=== PATIENT | male | born 1940 | race African-American/Black ===

== ENCOUNTER 2016-10-23 08:59 | Emergency (ER) | payer MEDICARE, OTHER ==
[2016-10-23] MEDS ORDERED: METH150T PO (10:01)
[2016-10-23] MEDS ORDERED: DIAZ5TAB PO (10:01)
--- NOTE | 2016-10-23 10:01 | PHYS DOC ---
Past History Past Medical History: High Cholesterol, Hypertension Past Surgical History: Knee Replacement Smoking: Non-smoker Alcohol Use: None Drug Use: None Adult General Chief Complaint Chief Complaint: BACK PAIN OR INJURY HPI HPI He is a pleasant 76-year-old male with a chronic history of lower back pain and left hip pain groin pain has been plaguing him for months. He started the care of the [facility] and his family's become relatively frustrated with the lack of progress in determining a diagnosis for cause of his pain. Patient says the pain is continuous describes as throbbing with aching from the hip to the gluteus damian to the lateral aspect of the leg and left calf. He denies any direct trauma, denies any numbness and tingling of the lower legs, denies any bowel or bladder incontinence, denies any night sweats, fevers, weight loss, pain is worse with range of motion and direct pressure over the lateral aspect of the hip into the groin. Patient's had a CAT scan abdomen and pelvis done within the last week demonstrating no intra-abdominal catastrophe causing his symptoms. There is been some calcification of the vascular structures within the abdominal and the aortic tree structure that nothing of the occlusive type. Patient has had a MRI of the hip as well done asserting no bursitis no soft tissue inflammation normal musculature normal range of motion with only gentle joint change within the acetabulum. Studies were produced by the family reports at bedside which were reviewed by me. Patient does not understand those results and so we reviewed them on his arrival. There is no new symptoms today other than the fact that he goes to the [facility] ER once a week for last 6 or 8 weeks to get pain medications and shots to relieve his symptoms. He has family getting frustrated with this situation because there is no definitive treatment plan. They're hoping we can help him today. Patient denies any fevers, chills, urinary or bladder incontinence, night sweats or direct trauma. Patient has had a 19 pound weight loss in the last 6 months. Review of Systems Review of Systems Constitutional: Denies fever or chills [] Eyes: Denies change in visual acuity, redness, or eye pain [] HENT: Denies nasal congestion or sore throat [] Respiratory: Denies cough or shortness of breath [] Cardiovascular: No additional information not addressed in HPI [] GI: Denies abdominal pain, nausea, vomiting, bloody stools or diarrhea [] : Denies dysuria or hematuria [] Musculoskeletal: Complain of his chronic back pain and joint. Integument: Denies rash or skin lesions [] Neurologic: Denies headache, focal weakness or sensory changes [] Endocrine: Denies polyuria or polydipsia [] Physical Exam Physical Exam Auto signs evaluated patient and be hypertensive. Cardiovascular:Heart rate regular rhythm, no murmur [] Lungs & Thorax: Bilateral breath sounds clear to auscultation [] Skin: Warm, dry, no erythema, no rash. [] Back: There is palpation along the lumbar spine on the left along with tenderness along the lateral hip with no soft tissue soft tissue swelling. Patient has decreased range of motion secondary to pain. There is nothing new about the symptoms S. [] Extremities: No tenderness along the iliotibial band and the left and the sartorius muscle. He's also tenderness along the vastus lateralis as well. Neurologic: Alert and oriented X 3, normal motor function, normal sensory function, no focal deficits noted. [] Psychologic: Affect normal, judgement normal, mood normal. [] EKG EKG [] Radiology/Procedures Radiology/Procedures [] Course & Med Decision Making Course & Med Decision Making Pertinent Labs and Imaging studies reviewed. (See chart for details) he presents with chronic lower back pain with no new symptoms today family's expressed frustration with lack of progress in determining a etiology for his symptoms. At this point given his negative CAT scan and negative MRI reviewed by me today provided by the family and possibly placed in the medical record per the parents family's permission. Doubt cauda equina, doubt ruptured AAA, doubt renal disease like revealed stone, or fracture or tumor because of the and negative ct, doubt epidural abscess or hematoma all of the has had epidural injections some time ago. She will be treated with anti-inflammatories, muscle relaxants and follow-up with his primary care doctor to refer him back to neurosurgery and complete his scheduled MRI next week. [] Dragon Disclaimer Dragon Disclaimer This chart was dictated in whole or in part using Voice Recognition software in a busy, high-work load, and often noisy Emergency Department environment. It may contain unintended and wholly unrecognized errors or omissions. Departure Departure: Impression: Primary Impression: Chronic lower back pain Additional Impression: Hip pain, chronic Disposition: HOME, SELF-CARE Condition: STABLE Referrals: ANGEL ESTRADA MD (PCP) Patient Instructions: Chronic Back Pain, Chronic Pain Management, Hip Pain Additional Instructions: Please return for any new or increasing symptoms, like night sweats or new neurologic deficits in the lower extremity especially the left with bowel or bladder incontinence. I would advise a follow-up your primary care doctor to discuss your frustration and you need for changing your medications in order to help cope with her chronic constipation and her chronic pain needs. Scripts Diazepam (VALIUM) 5 Mg Tablet 5 MG PO TID for 5 Days, #15 TAB Please use one tablet every 8 hours as needed for muscle spasms. Do not drink alcohol or use other narcotics with this medication. Prov: HARVEY COLE MD 10/23/16 Methylnaltrexone [place] (Relistor) 150 Mg Tablet 450 MG PO DAILY for 10 Days, #30 TAB Prov: HARVEY COLE MD 10/23/16 Problem Qualifiers HARVEY COLE MD Oct 23, 2016 10:01
[2016-10-23] MEDS ORDERED: DEXAMETHASONE SOD PHOS 10 MG/ML VIAL IV ONE (10:20)
[2016-10-23] MEDS ORDERED: KETOROLAC 60 MG/2 ML VIAL. IM ONE (10:20)
[2016-10-23 10:55] VITALS: BP 122/82
== END 2016-10-23 10:55 | disposition home or self-care (01) ==
LOC: ER 08:59
DX: G89.29 Other chronic pain (principal); M54.5 Low back pain; M25.552 Pain in left hip; E78.00 Pure hypercholesterolemia, unspecified; I10 Essential (primary) hypertension
CPT/HCPCS: 96372; 96374; 99284; J1100; J1885

== ENCOUNTER 2016-10-26 14:04 | Inpatient (IN) | payer MEDICARE, OTHER ==
[~2016-10-26] VITALS: Ht 170.2 cm; Wt 98.9 kg
[~2016-10-26 14:04] MED LIST: DIAZ5TAB PO; METH150T PO
[2016-10-26 14:11] VITALS: BP 148/82
[2016-10-26 15:57] LABS: BASO % 1 % (0-3); EOS # 0.1 x10^3/uL (0.0-0.7); EOS % 2 % (0-3); HEMATOCRIT 38.8 % (39.0-53.0); HEMOGLOBIN 13.1 g/dL (13.0-17.5); LYMPH # 1.7 x10^3/uL (1.0-4.8); LYMPH % 36 % (24-48); MEAN CORPUSCULAR HEMOGLOBIN 31 pg (25-35); MEAN CORPUSCULAR HGB CONC 34 g/dL (31-37); MEAN CORPUSCULAR VOLUME 91 fL (79-100); MONO # 0.5 x10^3/uL (0.0-1.1); MONO % 10 % (0-9); NEUT # 2.4 x10^3uL (1.8-7.7); NEUT % 52 % (31-73); PLATELET COUNT 152 x10^3/uL (140-400); RED BLOOD COUNT 4.25 x10^6/uL (4.30-5.70); RED CELL DISTRIBUTION WIDTH 14.6 % (11.5-14.5); WHITE BLOOD COUNT 4.7 x10^3/uL (4.0-11.0)
[2016-10-26] MEDS ORDERED: KETOROLAC 30 MG/ML VIAL. IV PRN (16:00)
[2016-10-26] MEDS ORDERED: DEXAMETHASONE SOD PHOS 10 MG/ML VIAL IV ONE (16:15)
[2016-10-26 16:18] LABS: ALBUMIN 3.7 g/dL (3.4-5.0); CALCIUM 8.6 mg/dL (8.5-10.1); CREATININE 1.3 mg/dL (0.7-1.3); GFR 65.3; MAGNESIUM 2.4 mg/dL (1.8-2.4); POTASSIUM 4.5 mmol/L (3.5-5.1); TOTAL BILIRUBIN 0.3 mg/dL (0.2-1.0); TOTAL PROTEIN 7.3 g/dL (6.4-8.2)
[2016-10-26 16:49] VITALS: BP 162/98
--- NOTE | 2016-10-26 19:36 | DS ---
DATE OF DISCHARGE: 10/26/2016 DATE OF TRANSFER: 10/26/2016. REASON FOR TRANSFER: Need of higher care at [facility], possibly Orthopedics or Neurosurgery. BRIEF HOSPITAL COURSE: This is a 76-year-old gentleman, who was down at the Pain [facility] [place] from [facility]. He had a near syncopal episode and was in severe back pain and Dr. Silva elected not to proceed and told him "you need to be admitted and ." As we do not have an MRI available here or the services of an orthopedist or neurosurgeon, it would be in his best interest to be transferred to [facility]. PAST MEDICAL HISTORY: 1. This is an ongoing 3 months problem with low back pain. He has been seen at the [facility] multiple times, went to the Emergency Room multiple times, treated with narcotics, he has had cortisone shot and Valium, but has not had an MRI of his back. He also has bilateral feet pain, low back pain. 2. Hypertension. 3. Enlarged prostate, which is evident on the scan. Then he had medications that have not been entered in, but there is a list by the nurse that will be sent. ALLERGIES: None. REVIEW OF SYSTEMS: As per HPI. The patient has lost 18 pounds because of the pain. The family attributes the pain in his back. He has left groin pain, left hip pain, feet pain, back pain, some calf pain. OBJECTIVE: VITAL SIGNS: Not available, height and weight are available. GENERAL: A 76-year-old in moderate distress. HEENT: His tongue is moist. Eyes are clear. NECK: Supple. LUNGS: Clear. CARDIOVASCULAR: Regular rhythm and rate. ABDOMEN: Soft, nontender. EXTREMITIES: Without edema. The patient has exquisite tenderness in the low back as well as upper back. His reflexes are 2+/4. He has left groin pain, deep, cannot forward flex and is not comfortable in any physician currently. Scans from 10/22/2016, he had a CT of the abdomen and pelvis which shows multilevel degenerative disk disease and facet arthropathy, mild atherosclerosis. He has an MRI of the left hip showing osteoarthritic changes, mild enlargement of the inguinal rings, and prostate gland enlarged with mass effect on the bladder, and mild SI joint degeneration with pseudoarticulation with the sacrum. ASSESSMENT: 1. Intractable low back pain, questionable etiology, must consider spinal stenosis versus severe degenerative disk disease or bulging discs. 2. Pseudoarticulation of the sacrum. 3. Multilevel degenerative disk disease. 4. Enlarged prostate with mass effect on the bladder. 5. Hypertension. 6. Pain management. I believe he needs semi emergent MRI and point evaluation by Orthopedics or neurosurgeon should the MRI be abnormal and adequate pain management discussed with . who will accept him. LIGIA JAIN DO DR: JORGE/sloan JOB#: [id number] / [id number]
--- NOTE | 2016-10-27 01:02 | ACF ---
Admission Criteria Forms BACK PAIN Clinical Indications for Admission to Inpatient Care ([place]/check or initial the applicable condition/ criteria) Admission is indicated for ANY ONE of the following(1)(2)(3)(4)(5)(6)(7): [ ]I. Cauda equina or conus medullaris syndrome as indicated by ANY ONE of the following(10): [ ]a) Bowel dysfunction [ ]b) Bladder dysfunction [ ]c) Saddle anesthesia [ ]d) Neurologic abnormality suggesting distal spinal cord impingement [ ]II. Progressive or severe neurologic deficit [ ]III. Spine fracture with significant damage or threat of damage to vertebral column or spinal cord [ ]IV. Suspected spinal infection (eg, epidural abscess, vertebral osteomyelitis)(11) [ ]V. Suspected cause that requires inpatient treatment (eg, aortic dissection ) [X]. Inpatient admission required[A] rather than observation care (see Back Pain: Observation Care ISC guideline as appropriate) because of ANYONE of the following(13): [X]a) Severe pain requiring acute inpatient management [ ]b) Immediate inpatient surgery [ ]c) Other condition, treatment, or monitoring requiring inpatient admission Extended stay beyond goal length of stay may be needed for (40)(41): [ ]a) Spinal cord compression from stenosis, disk, or tumor (10)(42) [ ]b) Traumatic or pathologic vertebral fracture (44) [ ]c) Vertebral infection (11) [ ]d) Severe pain that is difficult to control [ ]e) Older patients(65 years or older) [ ]f) Disk disease, spondylosis, or spinal stenosis as etiology of severe pain or functional deficit (without myelopathy) The original [employer] content created by [employer] has been revised. The portions of the content which have been revised are identified through the use of italic text, and [facility] has neither reviewed nor approved the modified material. All other unmodified content is copyright [employer]. Please see references footnoted in the original [employer] edition 2015 Admission Criteria Met?: Yes LEATHA CASTRO Oct 27, 2016 01:02
--- NOTE | 2016-10-27 16:47 | SSS ---
ADMIT DATE: 10/26/2016 DATE OF TRANSFER: 10/26/2016. REASON FOR TRANSFER: Need of higher care at [facility], possibly Orthopedics or Neurosurgery. BRIEF HOSPITAL COURSE: This is a 76-year-old gentleman, who was down at the Pain Clinic [place] from [facility]. He had a near syncopal episode and was in severe back pain and Dr. Silva elected not to proceed and told him "you need to be admitted and ." As we do not have an MRI available here or the services of an orthopedist or neurosurgeon, it would be in his best interest to be transferred to [facility]. PAST MEDICAL HISTORY: 1. This is an ongoing 3 months problem with low back pain. He has been seen at the [place] multiple times, went to the Emergency Room multiple times, treated with narcotics, he has had cortisone shot and Valium, but has not had an MRI of his back. He also has bilateral feet pain, low back pain. 2. Hypertension. 3. Enlarged prostate, which is evident on the scan. Then he had medications that have not been entered in, but there is a list by the nurse that will be sent. ALLERGIES: None. REVIEW OF SYSTEMS: As per HPI. The patient has lost 18 pounds because of the pain. The family attributes the pain in his back. He has left groin pain, left hip pain, feet pain, back pain, some calf pain. OBJECTIVE: VITAL SIGNS: Not available, height and weight are available. GENERAL: A 76-year-old in moderate distress. HEENT: His tongue is moist. Eyes are clear. NECK: Supple. LUNGS: Clear. CARDIOVASCULAR: Regular rhythm and rate. ABDOMEN: Soft, nontender. EXTREMITIES: Without edema. The patient has exquisite tenderness in the low back as well as upper back. His reflexes are 2+/4. He has left groin pain, deep, cannot forward flex and is not comfortable in any physician currently. Scans from 10/22/2016, he had a CT of the abdomen and pelvis which shows multilevel degenerative disk disease and facet arthropathy, mild atherosclerosis. He has an MRI of the left hip showing osteoarthritic changes, mild enlargement of the inguinal rings, and prostate gland enlarged with mass effect on the bladder, and mild SI joint degeneration with pseudoarticulation with the sacrum. ASSESSMENT: 1. Intractable low back pain, questionable etiology, must consider spinal stenosis versus severe degenerative disk disease or bulging discs. 2. Pseudoarticulation of the sacrum. 3. Multilevel degenerative disk disease. 4. Enlarged prostate with mass effect on the bladder. 5. Hypertension. 6. Pain management. I believe he needs semi emergent MRI and point evaluation by Orthopedics or neurosurgeon should the MRI be abnormal and adequate pain management discussed with . who will accept him. LIGIA JAIN DO DR: JORGE/sloan JOB#: [id number] / [id number]
--- NOTE | 2016-11-03 08:11 | EKG ---
[facility] [address] [place] [address] Test Date: 2016-10-26 Test Time: 15:41:45 Pat Name: SAMMY PARK Department: Room: [facility] 1 Gender: M Regulatory Associate: : 1940 Requested By: LIGIA JAIN Order Number: [id number] Reading MD: Measurements Intervals [place] Rate: P: [place]: QRS: QRSD: T: QT: QTc: Interpretive Statements
== END 2016-10-26 18:10 | disposition short-term general hospital (02) | DRG 552 ==
LOC: ICU 14:04
PROVIDERS: ADMIT Family Medicine; ATTEND Family Medicine
DX: M48.00 Spinal stenosis, site unspecified (principal); I10 Essential (primary) hypertension; N40.0 Benign prostatic hyperplasia without lower urinary tract symptoms; M54.5 Low back pain; R55 Syncope and collapse; M51.36 Other intervertebral disc degeneration, lumbar region
CPT/HCPCS: 36415; 80053; 83735; 85025; 87641; J1100; J1885

== ENCOUNTER 2017-12-13 19:55 | Emergency (ER) | payer MEDICARE, OTHER ==
[~2017-12-13] VITALS: Ht 170.2 cm; Wt 104.0 kg
--- NOTE | 2017-12-13 20:36 | PHYS DOC ---
Past History Past Medical History: High Cholesterol, Hypertension Past Surgical History: Knee Replacement Smoking: Non-smoker Alcohol Use: None Drug Use: None Adult General Chief Complaint Chief Complaint: SUTURE/STAPLE REMOVAL HPI HPI Patient is a 77 year old male who presents with complaint of a retained staple in the umbilicus. Patient states that one year ago he was admitted at [facility] for a bowel obstruction. The patient underwent laparotomy for surgical correction. Patient states that he has been healing well and has had no complaints. The patient states however yesterday he noticed a metal foreign body in his umbilicus. Patient states that he evaluated this at home and saw that he has a surgical staple that he assumes was not removed from his original surgery. Patient denies any associated pain, redness, or drainage. Patient came to the emergency department to have this removed. Review of Systems Review of Systems Constitutional: Denies fever or chills [] Eyes: Denies change in visual acuity, redness, or eye pain [] HENT: Denies nasal congestion or sore throat [] Respiratory: Denies cough or shortness of breath [] Cardiovascular: Denies chest pain or edema[] GI: Denies abdominal pain, nausea, vomiting, bloody stools or diarrhea [] : Denies dysuria or hematuria [] Musculoskeletal: Denies back pain or joint pain [] Integument: Denies rash or skin lesions [] Neurologic: Denies headache, focal weakness or sensory changes [] All other systems were reviewed and found to be within normal limits, except as documented in this note. Allergies Allergies Allergies Coded Allergies Type Severity Reaction Last Updated Verified No Known Drug Allergies 10/23/16 No Physical Exam Physical Exam Constitutional: Well developed, well nourished, no acute distress, non-toxic appearance. [] HENT: Normocephalic, atraumatic, bilateral external ears normal, oropharynx moist, no oral exudates, nose normal. [] Eyes: PERRLA, EOMI, conjunctiva normal, no discharge. [] Neck: Normal range of motion, no tenderness, supple, no stridor. [] Cardiovascular:Heart rate regular rhythm, no murmur [] Lungs & Thorax: Bilateral breath sounds clear to auscultation [] Abdomen: Bowel sounds normal, soft, single staple overlying midline laparotomy scar, no tenderness, no masses, no pulsatile masses. [] Skin: Warm, dry, no erythema, no rash. [] Back: No tenderness, no CVA tenderness. [] Extremities: No tenderness, no cyanosis, no clubbing, ROM intact, no edema. [] Neurologic: Alert and oriented X 3, normal motor function, normal sensory function, no focal deficits noted. [] Current Patient Data Lab Results Not performed EKG EKG Not performed[] Radiology/Procedures Radiology/Procedures Indication: Surgical staple in the umbilicus Procedure: The patient was placed in the appropriate position and the staple was removed without difficulty. Other items: 1 staple removed The patient tolerated the procedure without difficulty. Complications: None[] Course & Med Decision Making Course & Med Decision Making Pertinent Labs and Imaging studies reviewed. (See chart for details) Tibbie removed as outlined in procedure note. Patient appears well and in no acute distress. Advised routine follow-up with primary doctor as needed. Return to emergency department precautions were given. Patient voiced understanding and in agreement with treatment plan. Dragon Disclaimer Dragon Disclaimer This electronic medical record was generated, in whole or in part, using a voice recognition dictation system. Departure Departure: Impression: Primary Impression: Visit for suture removal Disposition: HOME, SELF-CARE Condition: GOOD Referrals: ANGEL ESTRADA MD (PCP) Patient Instructions: Staple Removal, Care After Additional Instructions: Follow-up with your primary doctor as needed. Return to emergency department for any worsening symptoms. AVRIL DURÁN MD Dec 13, 2017 20:36
[2017-12-13 21:15] VITALS: BP 146/73
== END 2017-12-13 21:15 | disposition home or self-care (01) ==
LOC: ER 19:55
DX: Z48.01 Encounter for change or removal of surgical wound dressing (principal); E78.00 Pure hypercholesterolemia, unspecified; I10 Essential (primary) hypertension; Z98.890 Other specified postprocedural states
CPT/HCPCS: 99281

== ENCOUNTER → 2021-05-11 | Day surgery (SDC) | payer MEDICARE, OTHER ==
[~2021-05-11] MED LIST changes: +ACETAMINOPHEN 500 MG TABLET PO PRN; +AMLO-187 PO; +ASPI81TA59 PO; +BALANCED SALT IRRIG SOLN NO.2 500 ML IO ONE; +BENZONATATE 100 MG CAPSULE. PO PRN; +BRIMONIDINE 0.2% OPHTH SOLUTION 5ML BOTTLE. OD ONE; +CEFUROXIME OPHTH 4 MG/0.4 ML SYRINGE. OD ONE; +CHONDROIT-SOD-HYALURONATE KIT. OD ONE; +GARLIC PO; +IBUPROFEN 200 MG TABLET PO PRN; +IPRATRPIUM/ALBUTEROL 0.5/2.5MG 3 ML NEBU. NEB PRN; +IV RINGERS SOLUTION,LACTATED 1,000 ML IV SCH; +LIDO/EPI IN BSS OPHTH 2.7 ML SYRINGE. OD ONE; +LIDOCAINE 2% JELLY 6ML IN APPLICATOR. ONE; +LOSA1TAB22 PO; +MIDAZOLAM HCL PF 2 MG/2 ML VIAL. IV ONE; +OMEG1CAP38 PO; +ONDANSETRON PF 4 MG/2 ML VIAL. IV PRN; +PHENYLEPHRINE 10% OPHTH SOLUTION 5ML BOTTLE. OD PRN; +POVIDONE-IODINE 5% OPHTH SOLUTION 30ML BOTTLE. OD ONE; +POVIDONE-IODINE 5% OPHTH SOLUTION 30ML BOTTLE. OD PRN; +PROPARACAINE 0.5% OPHTH SOLUTION 15ML BOTTLE. OD ONE; +PROPARACAINE 0.5% OPHTH SOLUTION 15ML BOTTLE. OD PRN; +TAMS0.4C97 PO; +VITAMIN B PO; +VITAMIN C PO; +VITAMIN D3 PO; +potassium OTC PO; +prednisoLONE ACETATE 1% OPHTH SUSPENSION 5ML BOTTLE. OD ONE
[2021-05-11] MEDS: TROPICAMIDE 1% OPHTH SOLUTION 15ML BOTTLE. OD SCH ×3 (10:40→10:52)
[2021-05-11] MEDS: TOBRAMYCIN 0.3% OPHTH SOLUTION 5ML BOTTLE. OD SCH ×2 (10:41→10:46)
[2021-05-11] MEDS: PHENYLEPHRINE 2.5% OPHTH SOLUTION 2ML BOTTLE. OD SCH ×3 (10:41→10:52)
[2021-05-11] MEDS: KETOROLAC TROMETHAMINE 0.5% OPHTH SOLUTION BOTTLE. OD SCH ×2 (10:41→10:46)
--- NOTE | 2021-05-11 11:49 | PDOC4 ---
Cataract i-Stent Injection Surgeon: Prabha Pitts MD Date of Procedure: 05/11/21 Preop Diagnosis: Visually significant cataract: Right Eye OD Pre-existing astigmatism: Right Eye OD Primary open angle glaucoma: Right eye Postop Diagnosis: Postop Diagnosis: Same Procedure: Phaco w/ posterior chamber IOL: Right Eye OD Anesthesia: Deep forniceal periocular 2% Lidocaine jelly Corina/retro bulbar block with 2% Lidocaine with 0.5% Marcaine Description of Procedure: The risks, benefits, and alternatives were discussed with the patient who elected to proceed. Informed consent was obtained in writing and placed in the chart After anesthetizing the eye topically, the patient was taken to the operating room, and the operative eye was prepped and draped in the usual sterile fashion for ocular surgery. A wire lid speculum was placed. A 1-mm clear corneal paracentesis incision was created with the sideport blade at a position three clock hours clockwise from the temporal cornea. Then 1% non-preserved Lidocaine with epinephrine was injected into the anterior chamber followed by viscoelastic. Cotton-tipped applicators were used to stabilize the globe, and a 2.4 mm keratome was used to create a self-sealing incision in the clear cornea at the temporal limbus. At this point, the head of the patient was titled away from the surgeon and the microscope was angled nasally to facilitate visualization of the nasal angle structures. Viscoelastic was placed on the corneas and a gonioprism was used to create a 4 clock-hour goniotomy nasally with a kahook dual blade. This was visualized and found to be stable in an appropriate position. The Utrata forceps were used to create a continuous curvilinear capsulorrhexis. Balanced saline solution was injected via cannula beneath the capsulorrhexis edge to hydrodissect the lens nucleus and cortex from the lens capsule. The phacoemulsification handpiece and a chopping instrument were then used to remove the lens nucleus. The remaining epinuclear material and cortex were removed with the irrigation/aspiration handpiece. Viscoelastic was used to re-inflate the lens capsule, and the intraocular lens was injected directly into the capsular bag. The corneal wound edges were hydrated with balanced salt solution on a cannula and the irrigation/aspiration handpiece was used to extract the remaining viscoelastic. Cefuroxime 0.1mg/ml/Vigamox 0.5% was injected into the anterior chamber intracamerally. The wounds were inspected and found to be watertight at an appropriate interocular pressure. The lid speculum and drapes were carefully removed. The patient was taken to the recovery area in good condition. Co-managed patients/postop examination stable for co-management with referring Doctor. Incision [place]: Incision [place]: 180 LRI: LRI: No Toric Lens [place]: 002 Patch/Shield with Max/Tob/Eryt Patch/shield with Maxitrol/Tobradex/Erythromycin ointment: Yes No EBL: EBL: None Specimens Collected: Specimens Collected: None PRABHA PITTS MD May 11, 2021 11:49
[2021-05-11 11:55] VITALS: BP 115/69
== END | disposition home or self-care (01) ==
LOC: SURG 10:08
PROVIDERS: ATTEND Ophthalmology
DX: H25.11 Age-related nuclear cataract, right eye (principal); H40.1110 Primary open-angle glaucoma, right eye, stage unspecified; H52.201 Unspecified astigmatism, right eye; G47.33 Obstructive sleep apnea (adult) (pediatric); I10 Essential (primary) hypertension; M19.90 Unspecified osteoarthritis, unspecified site; E78.00 Pure hypercholesterolemia, unspecified; Z72.89 Other problems related to lifestyle; Z79.899 Other long term (current) drug therapy; Z80.8 Family history of malignant neoplasm of other organs or systems
CPT/HCPCS: 65820; 66984; J2250; V2632